=== PATIENT | female | born 1970 | race Caucasian/White ===

== ENCOUNTER → 2017-07-08 | Outpatient (CLI) | payer BC ==
[2017-07-08 13:31] LABS: CH 33.2; HCT 37.2 % (34.0-46.0); HDW 2.19; HGB 12.5 gm/dL (11.4-16.0); MCH 33.9 pg (25.0-35.0); MCHC 33.6 g/dL (31.0-37.0); MCV 100.8 fL (80.0-100.0); Mean Platelet Volume 7.5; RBC 3.69 m/uL (3.80-5.40); RDW 12.4 % (11.5-15.5); WBC 12.1 k/uL (3.8-10.6)
[2017-07-08 13:42] LABS: ALT 22 U/L (9-52); AST 19 U/L (14-36); Alkaline Phosphatase 50 U/L (38-126); Anion Gap 9 mmol/L; Blood Urea Nitrogen 13 mg/dL (7-17); Calcium 9.1 mg/dL (8.4-10.2); Carbon Dioxide 23 mmol/L (22-30); Chloride 108 mmol/L (98-107); Glucose 101 mg/dL (74-99); Non-African American GFR(MDRD) >60 (>60 ml/min/1.73 sqM); Potassium 4.4 mmol/L (3.5-5.1); Sodium 140 mmol/L (137-145); Total Bilirubin 0.7 mg/dL (0.2-1.3); Total Protein 7.2 g/dL (6.3-8.2)
--- NOTE | 2017-07-08 14:31 | CT ---
EXAMINATION TYPE: CT abdomen pelvis w con DATE OF EXAM: 07/08/2017 COMPARISON: NONE HISTORY: RLQ pain CT DLP: 360.8 mGycm CONTRAST: CT scan of the abdomen and pelvis is performed with Oral Contrast and with IV Contrast, patient injec dominga with 100 mL of Omnipaque 300. FINDINGS: LUNG BASES-: No visible nodule. No infiltrate. LIVER/GB: No calcified gallstones. No space occupying hepatic lesion. Biliary tree is of normal ca liber. PANCREAS: No inflammation. No distinct mass. SPLEEN: No splenic enlargement. No lesion seen. ADRENALS: No nodule. No thickening. KIDNEYS/BLADDER: No hydronephrosis. No nephrolithiasis. No disctinct renal mass. Urinary bladder g rossly unremarkable. BOWEL: Visualized portions of the appendix appear to be within normal limits. Normal bowel caliber. No inflammation. GENITAL ORGANS: Dilated and irregular endometrium. Direct visualization is recommended to exclude und erlying malignancy. Trace free fluid within the cul-de-sac. No ovarian masses identified. No definite side wall adenopathy. LYMPH NODES: No greater than 1cm abdominal or pelvic lymph nodes are appreciated. AORTA: No significant abnormality. OSSEOUS STRUCTURES: No significant abnormality is seen. OTHER: No significant additional abnormality is seen. IMPRESSION: 1. Dilated and irregular endometrium. Direct visualization is recommended to exclude underlying malig bhavna. 2. Normal-appearing appendix.
== END | disposition home or self-care (01) ==
LOC: RADCTMAIN 12:25
PROVIDERS: ATTEND Physician Assistant
DX: N85.00 Endometrial hyperplasia, unspecified (principal); R10.31 Right lower quadrant pain
CPT/HCPCS: 80053; 85027; 74177; 36415; Q9967

== ENCOUNTER → 2020-10-03 | Outpatient (CLI) | payer BC | END | disposition home or self-care (01) | LOC: LABWHC1 15:57 | PROVIDERS: ATTEND Emergency Medicine | DX: Z20.828 Contact with and (suspected) exposure to other viral communicable diseases (principal) | CPT/HCPCS: U0003; C9803 ==